=== PATIENT | male | born 1950 | race Caucasian/White ===

== ENCOUNTER → 2018-03-29 | Outpatient (CLI) | payer OTHER ==
[~2018-03-29] MED LIST: AMLODIPINE BESYL5 MG PO; FLOMAX0.4 MG PO; METFORMIN HCL500 M2 PO; TYLENOL WITH C1 EACH PO; [UNRECOGNIZED DRUG - OTHER]
--- NOTE | 2018-04-01 15:05 | Cardiology Report ---
DATE OF STUDY: March 29, 2018 EXERCISE MYOVIEW STRESS TEST INDICATION: Chest pain. DESCRIPTION OF PROCEDURE: After informed consent, patient was brought to the stress lab. He exercised on George protocol. At peak heart rate, patient was given 33 mCi of technetium 99 Myoview, and myocardial perfusion SPECT images were obtained in the horizontal long-axis, short-axis and vertical long-axis views. Prior to that, patient was given 10.7 mCi of technetium 99 Myoview, and resting myocardial perfusion SPECT images were obtained in the horizontal long-axis, short-axis and vertical long-axis views. Gating images were also obtained. The patient tolerated the procedure without any complications. REPORT: Baseline EKG shows sinus bradycardia at 44 beats per minute, normal axis, normal intervals, nonspecific ST-T changes, poor R-wave progression in V1 to V3. PARAMETERS 1. Resting heart rate is 44 beats per minute. 2. Maximal heart rate is 92 beats per minute. 3. Resting blood pressure 112/63 mmHg. 4. Maximal blood pressure 153/82 mmHg. 5. Workload was 4.5 METs and protocol was manual. INTERPRETATION 1. Negative for chest pain. 2. Negative for arrhythmias. 3. Normal blood pressure response. 4. No significant ST-T changes seen during stress compared to baseline. 5. Analysis of SPECT images reveals uniform radioisotope uptake during stress and patchy radioisotope uptake during rest in the inferior wall without any significant perfusion defects. CONCLUSIONS 1. No evidence of significant ischemia or infarction on this study. 2. No wall motion abnormalities. 3. Overall ejection fraction is 52%. Job#: [id number]
== END ==
LOC: NM 07:25
DX: R07.2 Precordial pain (principal)
CPT/HCPCS: 78452; 93017; A9502